=== PATIENT | male | born 1955 | race Two or more races ===

== ENCOUNTER 2021-08-24 18:45 | Emergency (ER) | payer OTHER ==
[~2021-08-24] VITALS: Ht 177.8 cm; Wt 81.6 kg
[2021-08-24] MEDS ORDERED: SODIUM CHLORIDE 0.9% 500 ML IV ONE (19:15)
[2021-08-24] MEDS ORDERED: ASPirin 325 MG TAB PO ONE (19:15)
[2021-08-24 20:18] LABS: Basophils # (auto) 0.1 10 ^3/uL (0-0.2); Basophils % (auto) 1.2 % (0.0-2.0); Eosinophils # (auto) 0.1 10 ^3/uL (0-0.8); Hematocrit 43.2 % (41.0-53.0); Hemoglobin 14.9 g/dL (13.5-17.5); Lymphocytes # (auto) 2.1 10 ^3/uL (0.4-5.4); Lymphocytes % (auto) 32.8 % (10.0-50.0); Mean Corpuscular Hemoglobin 32.1 pg (28.0-32.0); Mean Corpuscular Hgb Conc. 34.5 g/dL (32.0-36.0); Mean Corpuscular Volume 93.1 fL (80.0-100.0); Monocytes # (auto) 0.3 10 ^3/uL (0-1.3); Monocytes % (auto) 3.9 % (0.0-12.0); Neutrophils % (auto) 61.1 % (37.0-80.0); Nucleated Red Blood Cells % 0.2 %; Red Blood Cells 4.64 10^6/uL (4.5-5.90); Red Cell Distribution Width 14.2 % (11.8-14.3); White Blood Cell 6.5 10^3/uL (4.4-10.8)
[2021-08-24 20:26] LABS: INR 1.4 (0.9-1.15)
[2021-08-24 20:29] LABS: Albumin 3.3 g/dL (3.4-5.0); Potassium 3.7 mmol/L (3.5-5.1)
[2021-08-24 20:38] LABS: Total Protein 7.9 g/dL (6.4-8.2)
[2021-08-24] MEDS ORDERED: THIAMINE HCL 100 MG TAB PO ONE (21:15)
[2021-08-24] MEDS ORDERED: FOLIC ACID 1 MG TAB PO ONE (21:15)
[2021-08-25] MEDS ORDERED: IOHEXOL 350 MG/ML 100ML IJ ONE (05:42)
[2021-08-25] MEDS ORDERED: levoFLOXacin 250 MG TAB PO ONE (08:15)
[2021-08-25] MEDS ORDERED: SODIUM CHLORIDE 0.9% 500 ML IV ONE (08:15)
[2021-08-25 09:15] VITALS: BP 142/80
== END 2021-08-25 09:34 | disposition home or self-care (01) ==
LOC: ER 18:48
DX: J18.9 Pneumonia, unspecified organism (principal); D69.6 Thrombocytopenia, unspecified; F10.10 Alcohol abuse, uncomplicated; I10 Essential (primary) hypertension; Z20.822 Contact with and (suspected) exposure to COVID-19
CPT/HCPCS: 36415; 36600; 71045; 71275; 74176; 76705; 80053; 80320; 82805; 83735; 83880; 84484; 85025; 85379; 85610; 85730; 87426; 93005; 96360; 96361; 99285; J7040; Q9967